=== PATIENT | male | born 1990 ===

== ENCOUNTER → 2020-07-20 09:26 | Outpatient (CLI) | payer OTHER, MEDICAID, SELFPAY ==
--- NOTE | 2020-07-20 | DI.ECHO.S_ITS ---
[facility]---------+ [facility] +---------+ : : [address] : [place] : : : : [id number] : : : : Phone: [phone]+ Echocardiogram Report + + :Name: URVASHI NAVA Study Date: 07/20/2020 Height: 67 in : [id number] ReadingLocation: Weight: 140 lb : : Gender: Male BSA: 1.7 m2 : :: 1990 Age: 29 yrs BP: 150/84 mmHg: :Reason For Study: Chest Pain : :Ordering Physician: VIVIANA, : :LARISA Performed By: Bria Romero : :Referring: LARISA MICHELLE : + + Interpretation Summary Normal echo study. Procedure: A two-dimensional transthoracic echocardiogram with color flow and Doppler was performed. The study quality was technically adequate. There is no prior echocardiogram noted for this patient. The patient was in sinus bradycardia with heart rates between 44-57 bpm during the exam. Left Ventricle: The left ventricle is normal in size and wall thickness. The ejection fraction is estimated to be 60-65%. Left ventricular wall motion is normal. Diastolic parameters suggest probable normal left ventricular diastolic function and normal filling pressures. Right Ventricle: The right ventricle is normal in size and function. Atria: The left atrial size is normal. Right atrial size is normal. There is no Doppler evidence for an interatrial shunt. Mitral Valve: The mitral valve is normal in structure and function. There is a flat closure plane of the the mitral valve leaflets. There is trace mitral regurgitation. Aortic Valve: The aortic valve is trileaflet. The aortic valve opens well. No aortic regurgitation is present. Tricuspid Valve: The tricuspid valve is normal in structure and function. There is a trace or physiologic amount of tricuspid regurgitation. Pulmonary artery pressures cannot be estimated because of the lack of a measurable TR jet velocity but the IVC suggests a CVP of around 3 mmHg. Pulmonic Valve: The pulmonic valve leaflets are thin and pliable; valve motion is normal. There is a trace or physiologic amount of pulmonic regurgitation. Great Vessels: The aortic root is normal size. The ascending aorta is normal in size. The pulmonary artery is normal size. The IVC is of normal diameter and collapses greater than 50% with a sniff. This suggests a low right atrial pressure of 3 mm Hg. Pericardium/ Pleura There is no pericardial effusion. MMode/2D Measurements & Calculations LVIDd: 4.5 cm LVOT diam: 2.0 cm LVIDs: 3.3 cm Ao root diam: 3.3 cm FS: 25.7 % asc Aorta Diam: 2.7 cm IVSd: 0.60 cm LVPWd: 0.68 cm LV edouard. diameter/BSA (cm/m^2): 2.6 LV sys. diameter/BSA (cm/m^2): 1.9 LA A2 area: 19.3 cm2 RA long axis: 4.6 cm LA A4 area: 18.8 cm2 RA area: 18.4 cm2 LA length (vol): 5.3 cm RA vol: 61.8 ml LA vol: 58.5 ml RA : 35.5 ml/m2 LA vol index: 33.7 ml/m2 IVC diam: 1.7 cm RVD1 (basal): 3.8 cm TAPSE: 2.2 cm Doppler Measurements & Calculations Ao V2 max: 121.7 cm/sec LVOT Max Ramiro: 108.4 cm/sec Ao V2 mean: 82.4 cm/sec LV V1 max P.7 mmHg Ao max P.9 mmHg LV V1 VTI: 21.7 cm Ao mean P.0 mmHg LUCIA(I,D): 2.8 cm2 Ao V2 VTI: 24.4 cm LUCIA(V,D): 2.8 cm2 sev ratio: 0.89 LUCIA indexed to BSA (cm^2/m^2): 1.6 MV E max ramiro: 117.0 cm/sec PA V2 max: 70.4 cm/sec MV A max ramiro: 48.0 cm/sec PA V2 mean: 53.6 cm/sec MV E/A: 2.4 PA mean P.3 mmHg Med Peak E' Ramiro: 13.1 cm/sec PA Accel Time: 0.14 sec E/E' med: 9.0 Lat Peak E' Ramiro: 14.7 cm/sec E/E' lat: 7.9 E/e' average: 8.4 MV dec time: 0.16 sec SV(LVOT): 68.1 ml Electronically signed by: Lg [place] on Reading Physician:07/20/2020 04:45 PM
== END ==
PROVIDERS: Referring Provider Nurse Practitioner Family; Visit Provider Nurse Practitioner Family
DX: R07.9 Chest pain, unspecified (principal)
CPT/HCPCS: 93306